=== PATIENT | male | born 1980 ===

== ENCOUNTER 2021-01-31 21:41 | Emergency (ER) | payer SELFPAY ==
[2021-01-31 21:49] VITALS: BP 149/92; PULSE 55; RESP 20; TEMP 98.2
--- NOTE | 2021-01-31 21:58 | ED ---
General Adult HPI - General Chief complaint: Recheck/Abnormal Lab/Rx Stated complaint: covid test Time Seen by Provider: 01/31/21 21:47 Source: patient Mode of arrival: ambulatory Limitations: no limitations - History of Present Illness Initial comments: Dictation was produced using [employer] dictation software. please excuse any grammatical, word or spelling errors. Chief Complaint: 40-year-old male presents with request for Covid testing History of Present Illness: 40-year-old male who presents to the emergency department for Covid testing. Patient and his traveled to [place] for family reasons. They need a Covid test to return back to [place]. Patient has no symptoms. Patient has no medical complaints. The ROS documented in this emergency department record has been reviewed and confirmed by me. Those systems with pertinent positive or negative responses have been documented in the HPI. All other systems are other negative and/or noncontributory. PHYSICAL EXAM: General Impression: Alert and oriented x3, not in acute distress HEENT: Normocephalic atraumatic, extra-ocular movements intact, pupils equal and reactive to light bilaterally, mucous membranes moist. Cardiovascular: Heart regular rate and rhythm Chest: Able to complete full sentences, no retractions, no tachypnea Motor: no focal deficits noted Neurological: CN II-XII grossly intact, no focal motor or sensory deficits noted Skin: Intact with no visualized rashes Psych: Normal affect and mood ED course: 40-year-old male requesting Covid testing to return home to [place] vital signs upon arrival are within acceptable limits. Patient has no medical complaints. covid not detected. patient discharged - Related Data Home Medications Medication Instructions Recorded Confirmed No Known Home Medications 01/31/21 01/31/21 Allergies Allergy/AdvReac Type Severity Reaction Status Date / Time No Known Allergies Allergy Verified 01/31/21 21:49 Review of Systems ROS Statement: Those systems with pertinent positive or pertinent negative responses have been documented in the HPI. ROS Other: All systems not noted in ROS Statement are negative. Past Medical History Past Medical History: No Reported History History of Any Multi-Drug Resistant Organisms: None Reported Past Surgical History: No Surgical Hx Reported Past Psychological History: No Psychological Hx Reported Smoking Status: Never smoker Past Alcohol Use History: None Reported Past Drug Use History: None Reported General Exam Limitations: no limitations Course Vital Signs 01/31/21 21:46 Temperature 98.2 F Pulse Rate 55 L Respiratory 20 Rate Blood Pressure 149/92 O2 Sat by Pulse 99 Oximetry Medical Decision Making - Lab Data Lab Results 01/31/21 Range/Units 21:51 Coronavirus (PCR) Not Detected (Not Detectd) Disposition Clinical Impression: Lab test negative for COVID-19 virus Disposition: HOME SELF-CARE Condition: Good Is patient prescribed a controlled substance at d/c from ED?: No Referrals: None,Stated [Primary Care Provider] - 1-2 days
== END 2021-01-31 23:00 | disposition home or self-care (01) ==
LOC: EC 21:41
DX: Z20.822 Contact with and (suspected) exposure to COVID-19 (principal)
CPT/HCPCS: 87635; 99282